=== PATIENT | male | born 1950 | race Caucasian/White ===

== ENCOUNTER → 2018-09-17 | Outpatient (CLI) | payer OTHER ==
[~2018-09-17] MED LIST: ATORVASTATIN CA40 MG PO; COZAAR 25 MG TA25 M1 PO; DENTAGEL56 GM PO; DORZOLAMIDE-TI1 EACH OPHTHALMIC; FLOMAX0.4 MG PO; HYDROCHLOROTHIA25 M2 PO; TRAVATAN Z2.5 ML OPHTHALMIC; VITAMIN D3400 UNIT PO
--- NOTE | ~2018-09-17 | EKG ---
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 : 1950 Requested By: Gucci Price Order Number: [id number] MD: Victor Hugo Johnson Measurements Intervals Harmans Rate: 61 P: -15 VA: 142 QRS: 54 QRSD: 113 T: -30 QT: 431 QTc: 434 Interpretive Statements Sinus rhythm Borderline intraventricular conduction delay Borderline repolarization abnormality No previous ECG available for comparison Electronically Signed On 09-17-2018 16:24:12 ASSISTANT TECHNICIAN by Victor Hugo Johnson [email or web address] <ELECTRONICALLY SIGNED> By: Victor Hugo Johnson MD 09/17/18 1624 1222 1222 MD URIEL Matias
== END | disposition home or self-care (01) ==
LOC: LITH 11:10
DX: N20.1 Calculus of ureter (principal); I10 Essential (primary) hypertension; E78.00 Pure hypercholesterolemia, unspecified; J45.909 Unspecified asthma, uncomplicated; N40.0 Benign prostatic hyperplasia without lower urinary tract symptoms; H40.9 Unspecified glaucoma; Z85.72 Personal history of non-Hodgkin lymphomas; Z98.890 Other specified postprocedural states; Z91.041 Radiographic dye allergy status; Z79.899 Other long term (current) drug therapy